=== PATIENT | female | born 1960 | race Caucasian/White ===

== ENCOUNTER → 2020-04-30 | Outpatient (CLI) | payer BC ==
[~2020-04-30] MED LIST: DCS100C PO; ESTR1TAB24 PO; HYDR-3720 PO; IBP800T PO; LVT.088T PO
--- NOTE | 2020-04-30 10:03 | Diagnostic Imaging Report ---
EXAMINATION: Frontal and lateral views of the right thumb, with single frontal view of the hand. INDICATION: Right thumb pain related to trauma sustained during fall approximately 1 week ago. COMPARISON: None available. FINDINGS: No fracture or acute osseous abnormality. Bony alignment is maintained. No prominent arthritic changes noted. Soft tissues are unremarkable. IMPRESSION: No acute fracture or dislocation. Dictated by: Dictated on workstation # [id number]
--- NOTE | 2020-04-30 10:04 | Diagnostic Imaging Report ---
EXAMINATION: Right wrist, 3 views INDICATION: Right lateral wrist/thumb pain after a fall approximately a week ago. COMPARISON: None available. FINDINGS: No fracture or acute osseous abnormality. Bony alignment is maintained. Carpal configuration is normal. No pronounced arthritic change is noted. Soft tissues are unremarkable. No radiopaque foreign body. IMPRESSION: No acute fracture or dislocation. Dictated by: Dictated on workstation # [id number]
== END ==
LOC: RAD 09:32
PROVIDERS: ATTEND Family Medicine
DX: S69.91XA Unspecified injury of right wrist, hand and finger(s), initial encounter (principal); W19.XXXA Unspecified fall, initial encounter
CPT/HCPCS: 73110; 73140

== ENCOUNTER 2022-12-26 11:43 | Outpatient (CLI) | payer BC ==
[~2022-12-26] VITALS: Ht 165.1 cm; Wt 64.9 kg
[2022-12-26] MEDS ORDERED: ASPI-1238 PO (13:01)
[2022-12-26] MEDS ORDERED: MULT-593 PO (13:01)
[2022-12-26] MEDS ORDERED: MAGN400T39 PO (13:01)
[2022-12-26] MEDS ORDERED: [UNRECOGNIZED DRUG - CODE] PO (13:01)
== END 2022-12-26 13:04 | disposition home or self-care (01) ==
LOC: PREOP 11:43
PROVIDERS: ATTEND Internal Medicine
DX: Z01.818 Encounter for other preprocedural examination (principal)

== ENCOUNTER 2023-01-05 07:25 | Day surgery (SDC) | payer BC ==
--- NOTE | 2022-12-26 07:36 | HISTORY AND PHYSICAL ---
HISTORY OF PRESENT ILLNESS: The patient is a 62-year-old white female presenting with a history of colon polyps and history of Graves' disease, post I-131 ablation, on thyroid replacement. She reports that she had one other screening colonoscopy done over 10 years ago and it was recommended that she have followup in 5 years as she has some colon polyps. She states that she has been feeling well. She denies bright red blood per rectum, change in bowel habits, diarrhea, constipation, or abdominal pain. She does take estradiol for her menopausal symptoms 1 mg daily and L-thyroxine 88 mcg daily. She reports her only past surgery was hysterectomy for what sounds like a large uterine fibroid. Ovaries were not reportedly left. She has no problems with urinary incontinence. SOCIAL HISTORY: She is retired with no past smoking or drinking history. FAMILY HISTORY: Father with history of hypothyroidism and atrial fibrillation, still living at the age of 78. Mother had cancer, she believes it was breast cancer that lead to her in her 80s. REVIEW OF SYSTEMS: CONSTITUTIONAL: Denies night sweats, chills, fever, or change in weight. GASTROINTESTINAL: As noted in the HPI. PULMONARY: Denies cough, wheezing or shortness of breath. CARDIOVASCULAR: Denies chest discomfort, syncope, dyspnea on exertion, orthopnea or PND. PHYSICAL EXAMINATION: GENERAL: Reveals a fit-appearing, normal weight white female in no acute distress. HEENT: Unremarkable. Sclerae nonicteric. CARDIOVASCULAR: Reveals regular rate and rhythm without murmur, S3, or S4. Blood pressure 110/82. CHEST: Clear to auscultation. ABDOMEN: Soft, supple without mass or organomegaly. She does have some right lower quadrant discomfort to palpation without rebound, guarding or mass. Bowel sounds are positive. EXTREMITIES: Reveal no cyanosis, clubbing or edema. SKIN: Evaluation reveals an area of vitiligo, central chest. No other areas noted. No suspicious nevi noted. ASSESSMENT AND PLAN: 1. The patient is being set up for screening colonoscopy. It has been over 10 years and reported past history of colon polyps. 2. Graves' disease, on thyroid replacement post-presumed I-131 therapy. Job ID: [id number] DocumentID: [id number] Dictated Date: 12/04/2022 13:57:40 Basket Filler Date: 12/04/2022 14:30:00 Dictated By: JUJU ANDERSON MD
[~2023-01-05] VITALS: Ht 165.1 cm; Wt 64.9 kg
[~2023-01-05 07:25] MED LIST changes: +ASPI-1238 PO; +FLAX100032 PO; +MAGN400T39 PO; +MULT-593 PO; +TUME1CAP PO; +[UNRECOGNIZED DRUG - CODE] PO
[2023-01-05] MEDS ORDERED: LACTATED RINGERS 1,000 ML IV STA (07:37)
[2023-01-05 07:47] VITALS: BP 134/85
--- NOTE | 2023-01-05 08:00 | Pre-Op Note & Conscious Sedat ---
Pre-Operative Progress Note Date H&P Reviewed: Jan 05, 2023 Time H&P Reviewed: 07:59 History & Physical: H&P Reviewed, Patient Examed, No changes noted Pre-Op Diagnosis: screening Moderate Sedation PreProcedure ASA Score 2 Airway Lungs Heart ASA score ASA 1: a normal healthy patient ASA 2: a patient with a mild systemic disease (mid diabetes, controlled hypertension, obesity ASA 3: a patient with a severe systemic disease that limits activity (angina, COPD, prior Myocardial infarction) ASA 4: a patient with an incapacitating disease that is a constant threat to life (CHF, renal failure) ASA 5: a moribund patient not expected to survive 24 hrs. (ruptured aneurysm) ASA 6: a declared brain- patient whose organs are being harvested. For emergent operations, add the letter E after the classification Mallampati Classification Grade 1 Sedation Plan Analgesia, Amnesia, Plan communicated to team members, Discussed options with patient/fam, Discussed risks with patient/fam The patient is an appropriate candidate to undergo the planned procedure, sedation, and anesthesia. The patient immediately re-assessed prior to indication. JUJU ANDERSON MD Jan 05, 2023 08:00
[2023-01-05] MEDS ORDERED: PROPOFOL INJECTION 50 ML IV ONE (08:03)
[2023-01-05 08:35] VITALS: BP 102/57
[2023-01-05 08:40] VITALS: BP 105/55
--- NOTE | 2023-01-05 08:43 | Progress Note-Post Operative ---
Post-Procedure Note Physician (s)/Home Delivery Driver (s) Physician JUJU ANDERSON MD Pre-Procedure Diagnosis Pre-Procedure Diagnosis: screening Post-Procedure Diagnosis Post-operative diagnosis: Prior to undergoing colonoscopy digital rectal evaluation was performed. Anal suture tone was normal and the perianal reflexes intact. There are no evidence for internal/external hemorrhoids. Digital evaluation of the anal canal distal rectal vault were unremarkable. Patient does have perianal vitiligo without ulceration or irritation. The colonoscope was then inserted into the rectum and under direct visualization the colonoscope was advanced to the cecum. The cecum was identified by identification of the ileocecal valve and cecal strap. Photographic documentation was obtained. Careful inspection was made as the colonoscope was withdrawn. Quality the prep was good. Findings: There are no evidence for internal/external hemorrhoids in the rectum sigmoid colon descending colon splenic flexure transverse colon hepatic flexure and ascending colon were unremarkable. Adjacent the ileocecal valve was a diminutive 2 mm sessile polyp was photographed and biopsied and ablated with no blood loss. It was not submitted for histopathology. A/P 1. One 2 mm polyp adjacent the ileocecal valve and the cecum was removed via hot forceps with no blood loss. Would advocate consideration for repeat screening colonoscopy in 10 years. This was an otherwise normal colonoscopy to the cecum under good prep conditions. I thank you for the Referral of this pleasant lady. Sincerely, Juju Anderson MD. CC: JUJU Swain MD Jan 05, 2023 08:43
[2023-01-05 08:45] VITALS: BP 101/58
[2023-01-05 09:13] VITALS: BP 119/81
--- NOTE | 2023-01-05 11:07 | Anesthesia-General Post-Op ---
MAC Patient Condition Mental Status/LOC: Same as Preop Cardiovascular: Satisfactory Nausea/Vomiting: Absent Respiratory: Satisfactory Pain: Controlled Complications: Absent Post Op Complications Complications None Follow Up Care/Instructions Patient Instructions None needed. Anesthesiology Discharge Order Discharge Order Patient is doing well, no complaints, stable vital signs, no apparent adverse anesthesia problems. No complications reported per nursing. CHAZ AVITIA CRNA Jan 05, 2023 11:07
== END 2023-01-05 09:18 | disposition home or self-care (01) ==
LOC: ENDO 07:25
PROVIDERS: ATTEND Internal Medicine
DX: Z12.11 Encounter for screening for malignant neoplasm of colon (principal); K63.5 Polyp of colon; E05.00 Thyrotoxicosis with diffuse goiter without thyrotoxic crisis or storm; Z79.890 Hormone replacement therapy; Z79.899 Other long term (current) drug therapy; N95.1 Menopausal and female climacteric states; Z28.310 Unvaccinated for COVID-19

== ENCOUNTER → 2023-06-25 | Outpatient (CLI) | payer BC ==
--- NOTE | 2023-06-25 15:55 | Diagnostic Imaging Report ---
INDICATION: Routine screening. COMPARISON: Prior mammograms from 09/27/2016 and 04/22/2014. TECHNIQUE: 2D and 3D bilateral screening mammography was performed with CAD. FINDINGS: Both breasts are heterogeneously dense, limiting the sensitivity of mammography. There are scattered benign calcifications in both breasts. No mass or malignant appearing microcalcifications are seen. The axillae are unremarkable. IMPRESSION: No mammographic features suspicious for malignancy are identified. ACR BI-RADS Category 2: Benign findings. Result letter will be mailed to the patient. Note: At least 10% of breast cancer is not imaged by mammography. Dictated by: Dictated on workstation # [id number]
--- NOTE | 2023-06-25 16:57 | Diagnostic Imaging Report ---
Clinical Indication: Patient with right carotid stenosis. Comparison: None Exam: Real-time ultrasound carotid Doppler duplex imaging is performed bilaterally with multiple real-time grayscale images obtained in various projections. Additional spectral analysis and color Doppler duple images were also obtained. Peak systolic velocity, ICA/CCA peak systolic ratio, spectral analysis, and vascular morphology are studied. Findings: ARTERY VELOCITY Right Left CCA 1.03 m/s 1.04 m/s ICA 0.74 m/s 0.94 m/s ECA 0.57 m/s 0.69 m/s ICA/CCA 0.7 0.9 VERT.ART Antegrade Antegrade There is minimal bilateral carotid artery atherosclerotic disease. Impression: There is no grayscale or Doppler evidence of significant vascular stenosis. Dictated by: Dictated on workstation # [id number]
== END ==
LOC: RAD 12:17
PROVIDERS: ATTEND Family Medicine
DX: Z12.31 Encounter for screening mammogram for malignant neoplasm of breast (principal); I65.21 Occlusion and stenosis of right carotid artery
CPT/HCPCS: 77063; 77067; 93880